=== PATIENT | male | born 1980 | race Caucasian/White ===

== ENCOUNTER 2018-05-30 09:26 | Day surgery (SDC) | payer OTHER ==
[~2018-05-30] VITALS: Ht 182.9 cm; Wt 80.1 kg
[~2018-05-30 09:26] MED LIST: ARNI120T PO; BUPIVACAINE/PF-EPI 0.5% 1:200K ONE
[2018-05-30] MEDS ORDERED: LACTATED RINGERS 1,000 ML IV SCH (09:42)
[2018-05-30 09:56] VITALS: BP 122/74
[2018-05-30] MEDS ORDERED: OXYcodone 5 MG/5 ML ORAL.SOL UDC PO PRN (10:00)
[2018-05-30] MEDS ORDERED: METOCLOPRAMIDE 5 MG/ML, 2ML IV PRN (10:00)
[2018-05-30] MEDS ORDERED: FENTANYL PF 100 MCG/2ML IV PRN (10:00)
[2018-05-30] MEDS ORDERED: KETOROLAC 30 MG/1 ML IV PRN (10:00)
[2018-05-30] MEDS ORDERED: ACETAMINOPHEN 325 MG TABLET PO PRN (10:00)
[2018-05-30] MEDS ORDERED: FENTANYL PF 100 MCG/2ML ONE (10:49)
[2018-05-30] MEDS ORDERED: MIDAZOLAM 1 MG/ML, 2ML ONE (10:49)
[2018-05-30] MEDS ORDERED: PROPOFOL 10 MG/ML, 20ML ONE (12:08)
[2018-05-30] MEDS ORDERED: ONDANSETRON 2MG/ML, 2ML ONE (12:08)
[2018-05-30] MEDS ORDERED: SUCCINYLCHOLINE 20 MG/ML, 10ML ONE (12:08)
[2018-05-30] MEDS ORDERED: BUPIVACAINE/PF-EPI 0.5% 1:200K INFIL ONE (12:31)
== END 2018-05-30 15:50 | disposition home or self-care (01) ==
LOC: OUT 09:26
PROVIDERS: ATTEND Colon & Rectal Surgery
DX: K60.3 Anal fistula (principal)
CPT/HCPCS: 46270; J0330; J2250; J2405; J2704; J3010; J7120